=== PATIENT | male | born 1970 | race Caucasian/White ===

== ENCOUNTER 2019-11-01 20:09 | Emergency (ER) | payer BC, SELFPAY ==
--- NOTE | ~2019-11-01 | CT_ITS ---
EXAMINATION: CT abd pelvis lumbar wo con DATE: 11/01/2019 21:11 INDICATION: Left lower quadrant and left flank pain, back pain TECHNIQUE: Computed tomography (CT) of the abdomen, pelvis, and lumbar spine was performed without in travenous contrast. The dose-length product (DLP) was 1630.29 mGy-cm. Automated exposure control and iterative reconstruction technique were employed. COMPARISON: None FINDINGS: ABDOMEN/PELVIS: There is atelectasis of the lingula. The heart size is normal. There is elevation of the left hemidiaphragm. The liver, spleen, pancreas, gallbladder, and adrenal glands are normal. Ther e is a 2 mm nonobstructing stone in the right kidney. No stones are identified in the left kidney. Th ere is mild left perinephric fat stranding and mild left periureteral fat stranding throughout its co urse. A 3 mm stone is present in the bladder near the left ureterovesicular junction. No pathological ly enlarged abdominal or pelvic lymph nodes are identified. There is no free intraperitoneal gas or e vidence of bowel obstruction. There is calcified atherosclerosis of the aorta and many of the other a rteries. There are fat-containing umbilical and left inguinal hernias. LUMBAR SPINE: There is no fracture, dislocation, or subluxation. The vertebral body heights, alignmen t, and intervertebral disc spaces are normal. The paravertebral soft tissues are unremarkable. There is moderate facet osteoarthritis of the lower lumbar spine. Mild posterior disc bulges are seen at L4 -5 and L5-S1. IMPRESSION: 1. 3 mm stone in the bladder near the left ureterovesicular junction. Mild left perinephric and left periureteral fat stranding are most consistent with recent passage of left-sided stone. 2. Nonobstructing right nephrolithiasis. 3. Mild lumbar spondylosis without acute findings. Reviewed, dictated and finalized at location A. IMPRESSION: 1. 3 mm stone in the bladder near the left ureterovesicular junction. Mild left perinephric and left periureteral fat stranding are most consistent with recen t passage of left-sided stone. 2. Nonobstructing right nephrolithiasis. 3. Mild lumbar spondylosis without acute findings.
[2019-11-01 20:25] VITALS: BP 192/103; PULSE 101; RESP 22; TEMP 36.3; O2SAT 96
[2019-11-01] MEDS: ONDANSETRON INJ 4 MG/2 ML VIAL IV PUSH (20:44)
[2019-11-01] MEDS: SODIUM CHLORIDE 0.9% IV 1,000 ML 999 ML IV CONT (20:44)
[2019-11-01] MEDS: KETOROLAC 30 MG/ML VIAL (*BKC) IV PUSH (20:44)
[2019-11-01 20:56] LABS: Add Urine Microscopic? YES; Appearance Urine Clear (Clear); Bilirubin Urine Negative (Negative); Blood Urine Negative (Negative); Color Urine Yellow (Yellow); Glucose Urine UA Trace (Negative); Ketones Urine 1+ (Negative); Leukocyte Esterase Ur Negative (Negative); Nitrate Urine Negative (Negative); Protein Urine 1+ (Negative); Specific Grav Ur >= 1.030 (1.010-1.020); Urobilinogen Urine 0.2 mg/dL (0.2-1.0)
[2019-11-01 21:16] LABS: Hemoglobin 15.5 g/dL (14.0-18.0); Mean Corpuscular Hemoglobin 27.4 pg (27.0-31.0); Mean Corpuscular Volume 83.2 fL (78.0-102.0); Mean Platelet Volume 10.6 fl (8.7-11.0); Platelet Count Result 170 K/mm3 (150-420); Red Blood Count 5.65 M/mm3 (4.70-6.10); Red Cell Distribution Width 14.6 % (11.6-14.4); White Blood Count 9.6 K/mm3 (4.8-10.8)
[2019-11-01 21:18] LABS: Bacteria Urine None seen /hpf; Mucus Urine Few /lpf; RBC Urine None seen /hpf (0-2); Squamous Epithelial Cell Urine Rare /hpf (Few); WBC Urine None seen /hpf (0-3)
[2019-11-01 21:33] LABS: Alanine Aminotransferase 46 U/L (16-63); Albumin Level 4.3 g/dL (3.4-5.0); Alkaline Phosphatase 62 U/L (46-116); Anion Gap 13.2 mmol/L (7-16); Aspartate Amino Transferase 25 U/L (15-37); Blood Urea Nitrogen 16 mg/dL (7-18); Calcium 8.9 mg/dL (8.5-10.1); Carbon Dioxide 27 mmol/L (21-32); Chloride 105 mmol/L (98-108); Estimated Glomerular Filt Rate 49; Glucose 158 mg/dL (70-99); Osmolality Calculated 296 mOsm/kg (285-295); Potassium 4.2 mmol/L (3.5-5.1); Sodium 141 mmol/L (136-145); Total Protein 7.4 g/dL (6.4-8.2)
[2019-11-01 21:47] VITALS: BP 105/69
--- NOTE | 2019-11-01 21:49 | ED.BACK ---
HPI - Back Pain/Injury General Chief Complaint: Back Pain/Injury Stated Complaint: abdominal and back pain Source: patient Mode of arrival: ambulatory Limitations: no limitations History of Present Illness HPI Narrative: This is a 49-year-old gentleman presents with some left flank pain radiating into his left groin and lower left abdomen rates his pain at about an 8/10, with some nausea, he denies any history of kidney stones. There is no diarrhea constipation there is no shortness of breath there is no chest pain no dysuria or hematuria. MD elicited complaint: back pain Onset (ago): hour(s) Timing: intermittent Severity: moderate Pain scale (0-10): 8 Similar Symptoms Previously: No Quality: aching Location: left flank Radiation: abdomen and groin Exacerbating factors: none Relieving factors: none Associated symptoms: abdominal pain Related Data Allergies Allergy/AdvReac Type Severity Reaction Status Date / Time No Known Allergies Allergy Verified 11/01/19 20:58 Review of Systems Review of Systems: All systems reviewed & are unremarkable except as noted in HPI and below PMFSH Past Medical History Medical History Patient denies medical problems Exam Const: General: no acute distress and alert Orientation/consciousness: patient oriented x3 HENMT: Head: normal to inspection Eyes: Conjunctivae: conjunctivae normal Pupils: Equal, round and reactive pupils present EOM: EOMs intact bilaterally Neck: Neck: normal visual inspection, no lymphadenopathy and no meningeal signs Chest: Chest palpation & inspection: normal inspection of the chest Resp: Effort & Inspection: normal respiratory effort Auscultation: clear to auscultation bilaterally Cardio: Rate: regular rate Rhythm: regular rhythm GI: Auscultation: normal bowel sounds Other: left groin and left lower abdominal discomfort : General: Yes CVA tenderness ( left flank) Back/Spine/Pelvis: Back: CVA tenderness Skin: General skin exam: normal color Rashes: no rashes Neuro: General: patient oriented x3 Extrem: General: normal to inspection Psych: Appearance: grossly normal Mental Status: mental status grossly normal Course Course Emergency Course: patient received IV fluids, with IV Toradol and Zofran after reassessment patient states his pain level had decreased from an 8 to a 3/10 and currently no nausea. Explained to the patient that he had a kidney stone and would be sending medication to his local pharmacy, and advised to establish care with primary care physician. Repeat blood pressure 105/69 Vital Signs Vital signs: Vital Signs Temperature 36.3 C L 11/01/19 20:25 Pulse Rate 101 H 11/01/19 20:25 Respiratory Rate 22 H 11/01/19 20:25 Blood Pressure 192/103 H 11/01/19 20:25 Pulse Oximetry 96 11/01/19 20:25 Temperature 36.3 C L 11/01/19 20:25 Pulse Rate 101 H 11/01/19 20:25 Respiratory Rate 22 H 11/01/19 20:25 Blood Pressure 105/69 11/01/19 21:47 Pulse Oximetry 96 11/01/19 20:25 MDM - Back Pain/Injury Lab Data Result diagrams: 11/01/19 21:12 11/01/19 21:12 Labs: Lab Results 11/01/19 11/01/19 11/01/19 Range/Units 20:50 21:12 21:12 WBC 9.6 (4.8-10.8) K/mm3 RBC 5.65 (4.70-6.10) M/mm3 Hgb 15.5 (14.0-18.0) g/dL Hct 47.0 (40.0-54.0) % MCV 83.2 (78.0-102.0) fL MCH 27.4 (27.0-31.0) pg MCHC 33.0 (32.0-36.0) g/dL RDW 14.6 H (11.6-14.4) % Plt Count 170 (150-420) K/mm3 MPV 10.6 (8.7-11.0) fl Sodium 141 (136-145) mmol/L Potassium 4.2 (3.5-5.1) mmol/L Chloride 105 (98-108) mmol/L Carbon Dioxide 27 (21-32) mmol/L Anion Gap 13.2 (7-16) mmol/L BUN 16 (7-18) mg/dL Creatinine 1.52 H (0.70-1.30) mg/dL Estim Creat Clear Calc Not Reportable Estimated GFR 49 L (59 - ) Glucose 158 H (70-99) mg/dL Calculated Osmolality 296
== END 2019-11-01 22:03 | disposition home or self-care (01) ==
PROVIDERS: Emergency Provider Emergency Medicine; PCP Internal Medicine
DX: N20.0 Calculus of kidney (principal)
CPT/HCPCS: 36415; 72133; 74176; 80053; 81001; 85027; 96361; 96374; 96375; 99283; 99284; J1885; J2405; J7030

== ENCOUNTER 2024-06-25 07:26 | Emergency (ER) | payer OTHER, SELFPAY ==
[2024-06-25] VITALS (13 sets, daily range): BP systolic 165–215; BP diastolic 109–147; PULSE 87–124; RESP 18–22; TEMP 36.6; O2SAT 91–95
--- NOTE | ~2024-06-25 | XR_ITS ---
Portable chest x-ray Comparison: None Clinical History: Chest pain Findings: Lungs are clear, without focal consolidation or pleural effusion. Cardiomediastinal silho uette is prominent, possibly due to AP technique. Bones and soft tissues are unremarkable. Impression: Clear lungs. Reviewed, dictated and finalized at location . [facility] Impression: Clear lungs.
--- NOTE | 2024-06-25 07:26 | ECG_ITS ---
Test Date: 2024-06-25 07:33:21 Measurements Intervals [place] Rate: 123 P: 52 [place]: 154 QRS: 27 QRSD: 100 T: 53 QT: 417 QTc: 598 Interpretive Statements SINUS TACHYCARDIA LEFT VENTRICULAR HYPERTROPHY WITH ST-T CHANGE BORDERLINE ST-T WAVE ABNORMALITY- INF/LAT LEADS BASELINE WANDER- II, III, AVL, AVF, V4 ABNORMAL ECG No previous ECG available for comparison Electronically Signed On 06-25-2024 07:48:26 ENROLLMENT NURSE by Edmund Kamara D.O.
[2024-06-25] MEDS: ASPIRIN 81 MG CHEWABLE TABLET 324 MG PO (07:48)
[2024-06-25] MEDS: METOPROLOL TARTRATE INJ 5 MG/5 ML VIAL IV PUSH (07:48)
[2024-06-25 07:57] LABS: Basophils Absolute Auto 0.03 K/mm3 (0.00-0.10); Basophils Percent Auto 0.6 % (0.0-1.0); Eosinophils Absolute Auto 0.03 K/mm3 (0.02-0.50); Eosinophils Percent Auto 0.6 % (1.0-6.0); Hematocrit 48.8 % (40.0-54.0); Hemoglobin 16.8 g/dL (14.0-18.0); Immature Granulocyte Absolute 0.02 K/mm3 (0.00-0.00); Immature Granulocyte Percent A 0.4 % (0.0-0.0); Lymphocytes Absolute Auto 1.42 K/mm3 (1.10-4.50); Lymphocytes Percent Auto 30.2 % (18.0-42.0); Mean Corpuscular HGB Conc 34.4 g/dL (32-36); Mean Corpuscular Hemoglobin 27.5 pg (27.0-31.0); Mean Corpuscular Volume 79.7 fL (78.0-102.0); Mean Platelet Volume 11.1 fl (8.7-11.0); Monocytes Absolute Auto 0.31 K/mm3 (0.10-0.90); Monocytes Percent Auto 6.6 % (2.0-11.0); Neutrophils Absolute Auto 2.89 K/mm3 (1.70-7.20); Neutrophils Percent Auto 61.6 % (50.0-70.0); Platelet Count Result 204 K/mm3 (150-420); Red Blood Count 6.12 M/mm3 (4.70-6.10); Red Cell Distribution Width 13.2 % (11.6-14.4); White Blood Count 4.7 K/mm3 (4.8-10.8)
[2024-06-25 08:12] LABS: D Dimer 0.19 mg/L (0.19-0.50); INR 0.9; Prothrombin Time 10.1 Seconds (9.50-12.1)
[2024-06-25 08:19] LABS: Alanine Aminotransferase 32 U/L (16-63); Albumin Level 4.3 g/dL (3.4-5.0); Alkaline Phosphatase 91 U/L (46-116); Anion Gap 15 mmol/L (4-12); Aspartate Amino Transferase 10 U/L (15-37); Bilirubin,Total 1.6 mg/dL (0.00-1.00); Blood Urea Nitrogen 14 mg/dL (7-18); Calcium 9.4 mg/dL (8.5-10.1); Carbon Dioxide 23 mmol/L (21-32); Chloride 96 mmol/L (98-108); Estimated CRCL calculation 89 ml/min; Estimated Glomerular Filt Rate > 60; Lipase 42 U/L (16-77); NT Pro B Type Natriuretic Pept 1280 pg/mL (0-125); Osmolality Calculated 297 mOsm/kg (285-295); Potassium 4.1 mmol/L (3.5-5.1); Sodium 134 mmol/L (136-145); Total Protein 7.7 g/dL (6.4-8.2); Troponin I 47.1 ng/L (0.00-60.4)
[2024-06-25 08:24] LABS: Glucose 444 mg/dL (70-99)
--- NOTE | 2024-06-25 08:24 | PC.NURSE ---
Laura from Lab calls to read glucose report of 444. ERMD made aware.
[2024-06-25] MEDS: SODIUM CHLORIDE 0.9% IV 1,000 ML 999 ML IV CONT (08:26)
[2024-06-25 08:33] LABS: Add Urine Microscopic? YES; Appearance Urine Clear (Clear); Bilirubin Urine Negative (Negative); Blood Urine Negative (Negative); Color Urine Light Yellow (Yellow); Glucose Urine UA 3+ (Negative); Ketones Urine 2+ (Negative); Leukocyte Esterase Ur Negative LEU/UL (Negative); Nitrate Urine Negative (Negative); Protein Urine 2+ (Negative); Specific Grav Ur 1.015 (1.010-1.020); Urobilinogen Urine 0.2 mg/dL (0.2-1.0); pH Urine 5.5 (5.0-8.0)
[2024-06-25 08:34] LABS: SARS-CoV-2 RNA PCR Negative (Negative)
[2024-06-25 08:36] LABS: Influenza A QL RT-PCR Negative (Negative); Influenza B QL RT-PCR Negative (Negative); RSV RNA, RT-PCR Negative (Negative)
[2024-06-25 08:36] LABS: Bacteria Urine Trace /hpf; RBC Urine None seen /hpf (0-2); Squamous Epithelial Cell Urine Rare /hpf (Few); WBC Urine None seen /hpf (0-3)
--- NOTE | 2024-06-25 08:38 | ED.CHESTPAIN ---
HPI - Chest Pain General Chief Complaint: Chest Pain Stated Complaint: chest pain Time Seen by Provider: 06/25/24 07:26 Source: patient and family Mode of arrival: ambulatory Limitations: no limitations History of Present Illness HPI narrative: this is a 53-year-old male with no significant past medical history presents with left-sided chest discomfort with no radiation of his pain with no shortness of breath no nausea vomiting no diaphoresis nonsmoker does not drink alcohol. There is no fever chills no abdominal pain no diarrhea constipation no dysuria no hematuria. MD complaint: chest discomfort Onset (ago): hour(s) Timing of current episode: now resolved Onset: during rest Pain location: left chest Severity: mild Quality: tightness Related Data Allergies Allergy/AdvReac Type Severity Reaction Status Date / Time No Known Allergies Allergy Verified 06/25/24 08:38 Review of Systems Review of Systems: All systems reviewed & are unremarkable except as noted in HPI and below PMFSH Past Medical History Medical History (Updated 06/25/24 @ 08:43 by Edson Price MD) Patient denies medical problems Exam Const: General: healthy appearing, no acute distress and alert Nutritional Appearance: well nourished Orientation/consciousness: patient oriented x3 Limitations: no limitations HENMT: Head: normal to inspection Eyes: Conjunctivae: conjunctivae normal Neck: Neck: normal visual inspection, no lymphadenopathy and no meningeal signs Chest: Chest palpation & inspection: normal inspection of the chest Resp: Effort & Inspection: normal respiratory effort Auscultation: clear to auscultation bilaterally Cardio: Rate: tachycardic Rhythm: regular rhythm GI: GI Palp: Yes Soft to palpation Auscultation: normal bowel sounds : General: Yes bladder normal to palpation Urinary Catheter: Urinary Catheter: patent and draining Skin: General skin exam: normal color Rashes: no rashes Neuro: General: patient oriented x3, moves all extremities, no meningeal signs and no focal motor deficits Course Course Emergency Course: Patient had EKG performed shows sinus tachycardia with no ST or T changes, troponin D-dimer were negative chest x-ray showed no acute cardiopulmonary abnormality. Patient blood work did show an elevated glucose level of 444 patient receiving a L of normal saline, blood pressure was elevated with 215/146 a heart rate of 124 patient did receive 5mg IV metoprolol and current heart rate 91 with a blood pressure 178/120. Vital Signs Vital signs: Vital Signs Temperature 36.6 C 06/25/24 07:33 Pulse Rate 124 H 06/25/24 07:33 Respiratory Rate 20 06/25/24 07:33 Blood Pressure 215/146 H 06/25/24 07:33 Pulse Oximetry 95 06/25/24 07:33 Oxygen Delivery Room Air 06/25/24 07:33 Temperature 36.6 C 06/25/24 07:33 Pulse Rate 91 06/25/24 08:29 Respiratory Rate 20 06/25/24 07:33 Blood Pressure 178/120 H 06/25/24 08:29 Pulse Oximetry 95 06/25/24 07:33 Oxygen Delivery Room Air 06/25/24 08:00 MDM - Chest Pain Lab Data 06/25/24 07:50 06/25/24 07:50 Labs: Lab Results 06/25/24 06/25/24 Range/Units 07:50 08:15 WBC 4.7 L (4.8-10.8) K/mm3 RBC 6.12 H (4.70-6.10) M/mm3 Hgb 16.8 (14.0-18.0) g/dL Hct 48.8 (40.0-54.0) % MCV 79.7 (78.0-102.0) fL MCH 27.5 (27.0-31.0) pg MCHC 34.4 (32-36) g/dL RDW 13.2 (11.6-14.4) % Plt Count 204 (150-420) K/mm3 MPV 11.1 H (8.7-11.0) fl Immature Gran % (Auto) 0.4 H (0.0-0.0) % Neut % (Auto) 61.6 (50.0-70.0) % Lymph % (Auto) 30.2 (18.0-42.0) % [place] % (Auto) 6.6 (2.0-11.0) % Eos % (Auto) 0.6 L (1.0-6.0) % Baso % (Auto) 0.6 (0.0-1.0) % Lymph # (Auto) 1.42 (1.10-4.50) K/mm3 [place] # (Auto) 0.31 (0.10-0.90) K/mm3 Eos # (Auto) 0.03 (0.02-0.50) K/mm3 Baso # (Auto) 0.03 (0.00-0.10) K/mm3 Abs Immat Gran (auto) 0.02 H (0.00-0.00) K/mm3 Absolute Neuts (auto) 2.89 (1.70-7.20) K/mm3 Absolute Nucleated RBC 0.00 (0.00-0.00) K/mm3 Nucleated RBC % 0.0 (0-0.0) % PT 10.1 (9.50-12.1) Seconds INR 0.9 APTT 25.0 (23.9-30.70) Sec D-Dimer 0.19 (0.19-0.50) mg/L Sodium 134 L (136-145) mmol/L Potassium 4.1 (3.5-5.1) mmol/L Chloride 96 L (98-108) mmol/L Carbon Dioxide 23 (21-32) mmol/L Anion Gap 15 H (4-12) mmol/L BUN 14 (7-18) mg/dL Creatinine 1.12 (0.70-1.30) mg/dL Estim Creat Clear Calc 89 ml/min Estimated GFR > 60 (59 - ) Glucose 444 H* (70-99) mg/dL Calculated Osmolality 297 H (285-295) mOsm/kg Calcium 9.4 (8.5-10.1) mg/dL Total Bilirubin 1.6 H (0.00-1.00) mg/dL AST 10 L (15-37) U/L ALT 32 (16-63) U/L Alkaline Phosphatase 91 (46-116) U/L Troponin I 47.1 (0.00-60.4) ng/L NT-Pro-B Natriuret Pep 1280 H (0-125) pg/mL Total Protein 7.7 (6.4-8.2) g/dL Albumin 4.3 (3.4-5.0) g/dL Lipase 42 (16-77) U/L Urine Color Light yellow (Yellow) Urine Appearance Clear (Clear) Urine pH 5.5 (5.0-8.0) Ur Specific [place] 1.015 (1.010-1.020) Urine Protein 2+ H (Negative) Urine Glucose (UA) 3+ H (Negative) Urine Ketones 2+ H (Negative) Ur Blood (Man) Negative (Negative) Urine Nitrate Negative (Negative) Urine Bilirubin Negative (Negative) Urine Urobilinogen 0.2 (0.2-1.0) mg/dL Leukocyte Esterase Rfl Negative (Negative) KAIT/UL Urine RBC None seen (0-2) /hpf Urine WBC None seen (0-3) /hpf Ur Squamous Epith Cells Rare (Few) /hpf Urine Bacteria Trace (None) /hpf Influenza A (RT-PCR) Negative (Negative) Influenza B (RT-PCR) Negative (Negative) RSV (RT-PCR) Negative (Negative) SARS-CoV-2 RNA (RT-PCR) Negative (Negative) Critical Care Time Critical Care Time Critical Care Time: No Discharge Plan Discharge Clinical Impression: Atypical chest pain, Hyperglycemia Hypertension Qualifiers: Hypertension type: unspecified Qualified Code(s): I10 - Essential (primary) hypertension Patient Disposition: Home, Self-Care Condition: Stable Instructions: Antibiotic Form, Hypertension (ED), Diabetic Hyperglycemia (ED) Patient Language: Serbian Prescriptions: No Action tramadol 50 mg tablet 50 mg PO Q6H PRN (Reason: pain) Qty: 20 0RF tamsulosin [Flomax] 0.4 mg capsule 0.4 mg PO DAILY Qty: 7 0RF Follow-up/Referrals: UNKNOWN,DOCTOR [Primary Care Provider] -
[2024-06-25 08:53] LABS: Glucose Point of Care 409 mg/dl (65-105)
[2024-06-25] MEDS: INSULIN HUMAN REGULAR (*BKC) 1,000 UNITS/10 ML VIAL 6 UNITS IV PUSH (08:56)
--- NOTE | 2024-06-25 09:35 | PC.NURSE ---
repeat blood glucose 341
[2024-06-27 05:11] LABS: Glucose Point of Care 341 mg/dl (65-105)
== END 2024-06-25 09:48 | disposition home or self-care (01) ==
PROVIDERS: Emergency Provider Emergency Medicine
DX: R07.89 Other chest pain (principal); I10 Essential (primary) hypertension; R73.9 Hyperglycemia, unspecified; Z20.822 Contact with and (suspected) exposure to COVID-19
CPT/HCPCS: 36415; 71045; 80053; 81001; 82948; 83690; 83880; 84484; 85025; 85380; 85610; 85730; 87637; 93005; 96361; 96374; 96375; 99284; A9270; J1815; J7030

== ENCOUNTER 2024-06-30 08:30 | Outpatient (CLI) | payer OTHER, SELFPAY ==
[2024-06-30 09:06] LABS: HCO3 VBG 22.8 mEq/l (24.0-30.0); PCO2 VBG 41.6 mmHg (42.0-48.0); pH VBG 7.36 (7.33-7.43)
[2024-06-30 09:14] LABS: Device ROOM AIR
[2024-06-30 09:18] LABS: Hemoglobin A1C 11.1 % (<5.7)
[2024-06-30 09:25] LABS: Alanine Aminotransferase 41 U/L (16-63); Albumin Level 4.5 g/dL (3.4-5.0); Alkaline Phosphatase 81 U/L (46-116); Anion Gap 13 mmol/L (4-12); Aspartate Amino Transferase 21 U/L (15-37); Bilirubin,Total 1.9 mg/dL (0.00-1.00); Blood Urea Nitrogen 21 mg/dL (7-18); Calcium 9.4 mg/dL (8.5-10.1); Carbon Dioxide 25 mmol/L (21-32); Chloride 98 mmol/L (98-108); Cholesterol 207 mg/dL (0-200); Estimated Glomerular Filt Rate > 60; Glucose 225 mg/dL (70-99); HDL Direct 37 mg/dL (40-60); LDL Cholesterol Calculated 97 mg/dL (<130); Osmolality Calculated 292 mOsm/kg (285-295); Potassium 4.5 mmol/L (3.5-5.1); Sodium 136 mmol/L (136-145); Total Protein 7.6 g/dL (6.4-8.2); Triglycerides 364 mg/dL (0-150)
[2024-06-30 09:52] LABS: Thyroid Stimulating Hormone Reflex 2.74 u/IU/mL (0.36-3.74)
== END 2024-06-30 08:31 | disposition home or self-care (01) ==
LOC: CHSLAB 08:31
PROVIDERS: PCP Nurse Practitioner Family; Visit Provider Nurse Practitioner Family
DX: Z00.00 Encounter for general adult medical examination without abnormal findings (principal); R73.9 Hyperglycemia, unspecified; I10 Essential (primary) hypertension; I51.7 Cardiomegaly
CPT/HCPCS: 36415; 80053; 80061; 82010; 82803; 83036; 84443